=== PATIENT | male | born 1965 | race African-American/Black ===

== ENCOUNTER 2021-03-15 17:52 | Inpatient (IN) | payer MEDICAID ==
[~2021-03-15] VITALS: Ht 170.2 cm; Wt 47.6 kg
[2021-03-15 18:31] LABS: BASO # 0.1 x10^3/uL (0.0-0.2); BASO % 1 % (0-3); EOS # 0.1 x10^3/uL (0.0-0.7); EOS % 1 % (0-3); HEMATOCRIT 37.3 % (39.0-53.0); HEMOGLOBIN 13.4 g/dL (13.0-17.5); LYMPH # 1.1 x10^3/uL (1.0-4.8); LYMPH % 13 % (24-48); MEAN CORPUSCULAR HEMOGLOBIN 30 pg (25-35); MEAN CORPUSCULAR HGB CONC 36 g/dL (31-37); MEAN CORPUSCULAR VOLUME 82 fL (79-100); MONO # 0.8 x10^3/uL (0.0-1.1); MONO % 9 % (0-9); NEUT # 6.5 x10^3/uL (1.8-7.7); NEUT % 76 % (31-73); PLATELET COUNT 327 x10^3/uL (140-400); RED BLOOD COUNT 4.55 x10^6/uL (4.30-5.70); RED CELL DISTRIBUTION WIDTH 13.8 % (11.5-14.5); WHITE BLOOD COUNT 8.5 x10^3/uL (4.0-11.0)
--- NOTE | 2021-03-15 18:31 | EKG ---
[facility] [address] [place] [address] Test Date: 2021-03-15 Test Time: 18:05:59 Pat Name: JAMES SILVEIRA Department: Room: Gender: M Employee Relations Advisor: : 1965 Requested By: ANMOL GOMEZ Order Number: [id number] Reading MD: Measurements Intervals [place] Rate: 115 P: 79 NM: 138 QRS: 11 QRSD: 78 T: 54 QT: 314 QTc: 436 Interpretive Statements SINUS TACHYCARDIA BIATRIAL ENLARGEMENT ABNORMAL ECG RI6.02 No previous ECG available for comparison
[2021-03-15 18:39] LABS: CREATININE 1.2 mg/dL (0.7-1.3); GFR 62.6; POTASSIUM 3.7 mmol/L (3.5-5.1)
[2021-03-15 18:47] LABS: ALBUMIN 3.3 g/dL (3.4-5.0); ALBUMIN/GLOBULIN RATIO 0.8 (1.0-1.7); TOTAL BILIRUBIN 0.2 mg/dL (0.2-1.0); TOTAL PROTEIN 7.4 g/dL (6.4-8.2)
--- NOTE | 2021-03-15 18:48 | PHYS DOC ---
Past Medical History Past Surgical History: No Surgical History Smoking Status: Current Every Day Smoker Alcohol Use: Occasionally General Adult EDM: Chief Complaint: SHORTNESS OF BREATH HPI: HPI: Patient is a 55 year old male who presented to ER for evaluation of trouble breathing for several days. Patient denies any chest pain, no abdominal pain, no nausea vomiting. Patient denies any cough or fever. Patient is a smoker, he has COPD, he is not on oxygen at home. Patient is not vaccinated for COVID-19. Patient also complained of left knee pain and left hip pain, denies any injury. Review of Systems: Review of Systems: Constitutional: Denies fever or chills. [] Eyes: Denies change in visual acuity. [] HENT: Denies nasal congestion or sore throat. [] Respiratory: Positive for cough, trouble breathing Cardiovascular: Denies chest pain or edema. [] GI: Denies abdominal pain, nausea, vomiting, bloody stools or diarrhea. [] : Denies dysuria. [] Musculoskeletal: Positive for right hip pain, left knee pain, no low back pain Integument: Denies rash. [] Neurologic: Denies headache, focal weakness or sensory changes. [] Endocrine: Denies polyuria or polydipsia. [] Lymphatic: Denies swollen glands. [] Psychiatric: Denies depression or anxiety. [] Heart Score: C/O Chest Pain: N/A Risk Factors: Risk Factors: DM, Current or recent (<one month) smoker, HTN, HLP, family history of CAD, obesity. Risk Scores: Score 0 - 3: 2.5% MACE over next 6 weeks - Discharge Home Score 4 - 6: 20.3% MACE over next 6 weeks - Admit for Clinical Observation Score 7 - 10: 72.7% MACE over next 6 weeks - Early Invasive Strategies Allergies: Allergies: Allergies Coded Allergies Type Severity Reaction Last Updated Verified No Known Drug Allergies 03/15/21 No Physical Exam: PE: Constitutional: Well developed, well nourished, no acute distress, non-toxic appearance. [] HENT: Normocephalic, atraumatic, bilateral external ears normal, oropharynx moist, no oral exudates, nose normal. [] Eyes: PERRLA, EOMI, conjunctiva normal, no discharge. [] Neck: Normal range of motion, no tenderness, supple, no stridor. [] Cardiovascular: Sinus tachycardia, regular rhythm, no murmur [] Lungs & Thorax: Bilateral breath sounds WITH EXPIRATORY WHEEZING to auscultation [] Abdomen: Bowel sounds normal, soft, no tenderness, no masses, no pulsatile masses. [] Skin: Warm, dry, no erythema, no rash. [] Back: No tenderness, no CVA tenderness. [] Extremities: No tenderness, no cyanosis, no clubbing, ROM intact, no edema. [] Neurologic: Alert and oriented X 3, normal motor function, normal sensory function, no focal deficits noted. [] Psychologic: Affect normal, judgement normal, mood normal. [] Current Patient Data: Labs: Laboratory Tests Test 03/15/21 18:20 White Blood Count 8.5 x10^3/uL (4.0-11.0) Red Blood Count 4.55 x10^6/uL (4.30-5.70) Hemoglobin 13.4 g/dL (13.0-17.5) Hematocrit 37.3 % (39.0-53.0) L Mean Corpuscular Volume 82 fL (79-100) Mean Corpuscular Hemoglobin 30 pg (25-35) Mean Corpuscular Hemoglobin Concent 36 g/dL (31-37) Red Cell Distribution Width 13.8 % (11.5-14.5) Platelet Count 327 x10^3/uL (140-400) Neutrophils (%) (Auto) 76 % (31-73) H Lymphocytes (%) (Auto) 13 % (24-48) L Monocytes (%) (Auto) 9 % (0-9) Eosinophils (%) (Auto) 1 % (0-3) Basophils (%) (Auto) 1 % (0-3) Neutrophils # (Auto) 6.5 x10^3/uL (1.8-7.7) Lymphocytes # (Auto) 1.1 x10^3/uL (1.0-4.8) Monocytes # (Auto) 0.8 x10^3/uL (0.0-1.1) Eosinophils # (Auto) 0.1 x10^3/uL (0.0-0.7) Basophils # (Auto) 0.1 x10^3/uL (0.0-0.2) Sodium Level 138 mmol/L (136-145) Potassium Level 3.7 mmol/L (3.5-5.1) Chloride Level 102 mmol/L (98-107) Carbon Dioxide Level 31 mmol/L (21-32) Anion Gap 5 (6-14) L Blood Urea Nitrogen 14 mg/dL (8-26) Creatinine 1.2 mg/dL (0.7-1.3) Estimated GFR (Cockcroft-Gault) 62.6 BUN/Creatinine Ratio 12 (6-20) Glucose Level 153 mg/dL (70-99) H Calcium Level 9.0 mg/dL (8.5-10.1) Magnesium Level Pending Total Bilirubin Pending Aspartate Amino Transferase (AST) Pending Alanine Aminotransferase (ALT) Pending Alkaline Phosphatase Pending Total Protein Pending Albumin Pending Albumin/Globulin Ratio Pending Laboratory Tests 03/15/21 18:20 Laboratory Tests 03/15/21 18:20 Vital Signs: Vital Signs Date Time Temp Pulse Resp B/P (MAP) Pulse Ox O2 Delivery O2 Flow Rate FiO2 03/15/21 18:05 114 24 116/84 98 EKG: EKG: EKG was done at 616, heart rate 115 bpm, sinus tachycardia, no ST segment elevation,, normal axis Radiology/Procedures: Radiology/Procedures: [][facility] [address] [place] [address] IMAGING REPORT Signed PATIENT: JAMES SILVEIRA CACCOUNT: [id number] : 1965 LOCATION: ER AGE: 55 SEX: M EXAM STATUS: PRE ER ORD. PHYSICIAN: ANMOL GOMEZ DO REASON: right hip pain PROCEDURE: HIP RIGHT 2V WITH PELVIS EXAM: Chest, single view; left knee, 3 views; pelvis and right hip, 3 views. HISTORY: Pain COMPARISON: None. FINDINGS: Chest: A frontal view of the chest is obtained. There is no infiltrate, pleural effusion or pneumothorax. There is a cardiac event monitor overlying the left thorax. There are calcified granulomas. There is hyperlucency likely due to emphysema. Left knee: 3 views of the left knee are obtained. There is a displaced fracture of the inferior patella. There is approximately 1.5 cm displacement along the fracture line. There is no overlying soft tissue swelling or joint effusion, suggesting a possible chronic nonunited fracture. Right hip and pelvis: A frontal view of the pelvis and 2 views of the right hip are obtained. There is no acute fracture, dislocation or subluxation. The femoral heads are normal in configuration. There is minimal marginal femoral head spurring. There is degenerative change at the lower lumbar levels. IMPRESSION: 1. No acute thoracic finding. 2. Displaced left inferior patellar fracture. This may be chronic given the absence of a joint effusion and overlying soft tissue swelling. Correlate for pain in this location. 3. Minimal bilateral hip osteoarthritis and multilevel degenerative change involving the lower lumbar spine. Electronically signed by: Nemo New MD (03/15/2021 7:12 PM) [facility] DICTATED and SIGNED BY: NEMO NEW MD DATE: 03/15/21 [id number] Course & Med Decision Making: Course & Med Decision Making Pertinent Labs and Imaging studies reviewed. (See chart for details) Patient is a 55-year-old male who present to ER for evaluation of trouble breathing, left knee pain, right hip pain. X-ray of the left knee show chronic patella fracture, x-ray of the right hip show arthritis in his hip. X-ray of the chest shows COPD pattern. Patient will be admitted for COPD exacerbation Bebe Disclaimer: Bebe Disclaimer: This electronic medical record was generated, in whole or in part, using a voice recognition dictation system. Departure Departure Impression: Primary Impression: COPD with exacerbation Additional Impressions: Hip pain, right Person under investigation for COVID-19 Disposition: ADMITTED INPATIENT Admitting Physician: VANESSA (Dr. Seth) Condition: STABLE GOMEZANMOL Hunter Mar 15, 2021 18:48
--- NOTE | 2021-03-15 19:14 | RAD ---
EXAM: Chest, single view; left knee, 3 views; pelvis and right hip, 3 views. HISTORY: Pain COMPARISON: None. FINDINGS: Chest: A frontal view of the chest is obtained. There is no infiltrate, pleural effusion or pneumothorax. There is a cardiac event monitor overlying the left thorax. There are calcified granul omas. There is hyperlucency likely due to emphysema. Left knee: 3 views of the left knee are obtained. There is a displaced fracture of the inferior comer la. There is approximately 1.5 cm displacement along the fracture line. There is no overlying soft ti ssue swelling or joint effusion, suggesting a possible chronic nonunited fracture. Right hip and pelvis: A frontal view of the pelvis and 2 views of the right hip are obtained. There i s no acute fracture, dislocation or subluxation. The femoral heads are normal in configuration. There is minimal marginal femoral head spurring. There is degenerative change at the lower lumbar levels. IMPRESSION: 1. No acute thoracic finding. 2. Displaced left inferior patellar fracture. This may be chronic given the absence of a joint effusi on and overlying soft tissue swelling. Correlate for pain in this location. 3. Minimal bilateral hip osteoarthritis and multilevel degenerative change involving the lower lumbar spine. Electronically signed by: Nemo Newsome MD (03/15/2021 7:12 PM) [facility]
[2021-03-15] MEDS ORDERED: methylPREDNISolone SOD SUCC PF 125 MG/2 ML VIAL. IV ONE (20:30)
[2021-03-15] MEDS ORDERED: IPRATRPIUM/ALBUTEROL 0.5/2.5MG 3 ML NEBU. NEB ONE (20:30)
[2021-03-15] MEDS ORDERED: ONDANSETRON PF 4 MG/2 ML VIAL. IVP PRN (21:00)
--- NOTE | 2021-03-15 21:54 | PDOC1 ---
History and Physical Date of Admission Date of Admission DATE: 03/15/21 TIME: 21:51 Source Source: Chart review, Patient History of Present Illness History of Present Illness t MR. Barker is a 55 year old male admit from the ER with worsening trouble breathing for several days. Patient denies any chest pain, no abdominal pain, no nausea vomiting. he complains that he is very cold and asks me to get him a blanket, He has cough - denied other fever. Patient is a current smoker, he has known COPD, he is not on oxygen at home. Patient is not vaccinated for COVID-19. He is very thin but does not say he has lost any weight, no pain, Patient also complained of left knee pain and left hip pain, denies any injury. Past Medical History Cardiovascular: HTN Pulmonary: COPD GI: No pertinent hx Infectious disease: No pertinent hx Renal/: No pertinent hx Family History Family History: Cancer Family History: Parent Social History Smoke: <1 pack per day ALCOHOL: none Drugs: None Current Problem List Problem List Problems Medical Problems: (1) COPD with exacerbation Status: Acute (2) Hip pain, right Status: Acute (3) Person under investigation for COVID-19 Status: Acute Current Medications Current Medications Current Medications Methylprednisolone Sodium Succinate (SOLU-Medrol 125MG VIAL) 125 mg 1X ONCE IV Last administered on 03/15/21at 20:05; Start 03/15/21 at 20:30; Stop 03/15/21 at 20:31; Status DC Albuterol/ Ipratropium (Duoneb) 3 ml 1X ONCE NEB Last administered on 03/15/21at 20:33; Start 03/15/21 at 20:30; Stop 03/15/21 at 20:31; Status DC Ondansetron HCl (Zofran) 4 mg PRN Q8HRS PRN IVP NAUSEA/VOMITING 1st choice; Start 03/15/21 at 21:00; Stop 03/16/21 at 20:59 Albuterol/ Ipratropium (Duoneb) 3 ml RTQID NEB ; Start 03/16/21 at 08:00; Stop 03/17/21 at 07:59 Allergies Allergies: Coded Allergies: No Known Drug Allergies (Unverified , 03/15/21) ROS General: YES: Chills, Fatigue, Malaise PSYCHOLOGICAL ROS: YES: Anxiety, Sleep disturbances Eyes: No Blurry vision, No Decreased vision, No Double vision, No Dry eyes, No Excessive tearing, No Eye Pain, No Itchy Eyes, No Loss of vision, No Photophobia, No Scotomata, No Uses contacts, No Uses glasses, No Other HEENT: No: Heacaches, Visual Changes, Hearing change, Nasal congestion, Nasal discharge, Oral lesions, Sinus pain, Sore Throat, Epistaxis, Sneezing, Snoring, Tinnitus, Vertigo, Vocal changes, Other Hematological and Lymphatic: No: Bleeding Problems, Blood Clots, Blood Transfusions, Brusing, Night Sweats, Pallor, Swollen Lymph Nodes, Other ENDOCRINE: YES: Temperature Intolerance (cold); No: Breast Changes, Galactorrhea, Hair Pattern Changes, Hot Flashes, Malaise/lethargy, Mood Swings, Palpitations, Polydipsia/polyuria, Skin Changes, Unexpected Weight Changes, Other Respiratory: YES: Cough, Shortness of breath, SOB with excertion, Sputum Changes Cardiovascular: No Chest Pain, No Palpitations, No Orthopnea, No Paroxysmal Noc. Dyspnea, No Edema, No Lt Headedness, No Other Gastrointestinal: Yes Nausea, Yes Abdominal Pain Genitourinary: No Dysuria, No Frequency, No Incontinence, No Hematuria, No Retention, No Discharge, No Urgency, No Pain, No Flank Pain, No Other, No , No , No , No , No , No , No Musculoskeletal: Yes Joint Pain, Yes Joint Stiffness Neurological: No Behavorial Changes, No Bowel/Bladder ControlChng, No Confusion, No Dizziness, No Gait Disturbance, No Headaches, No Impaired Coord/balance, No Memory Loss, No Numbness/Tingling, No Seizures, No Speech Problems, No Tremors, No Visual Changes, No Weakness, No Other Skin: Yes Dry Skin Physical Exam General: Alert, Oriented X3, Cooperative, mild distress HEENT: PERRLA Lungs: Other (rales, wheeze, poor volume, ) Heart: no murmurs, irregularly irregular Abdomen: Soft (very thin) Extremities: No cyanosis, No edema, Other (muscle wasting) Skin: No rashes Neuro: Sensation intact, Other Psych/Mental Status: Mood NL, Other Vitals Vitals Vital Signs Date Time Temp Pulse Resp B/P (MAP) Pulse Ox O2 Delivery O2 Flow Rate FiO2 03/15/21 20:33 98 Room Air 03/15/21 20:06 96 172/91 (118) 03/15/21 18:05 24 Labs Labs Laboratory Tests Test 03/15/21 18:20 03/15/21 19:10 White Blood Count 8.5 x10^3/uL (4.0-11.0) Red Blood Count 4.55 x10^6/uL (4.30-5.70) Hemoglobin 13.4 g/dL (13.0-17.5) Hematocrit 37.3 % (39.0-53.0) Mean Corpuscular Volume 82 fL (79-100) Mean Corpuscular Hemoglobin 30 pg (25-35) Mean Corpuscular Hemoglobin Concent 36 g/dL (31-37) Red Cell Distribution Width 13.8 % (11.5-14.5) Platelet Count 327 x10^3/uL (140-400) Neutrophils (%) (Auto) 76 % (31-73) Lymphocytes (%) (Auto) 13 % (24-48) Monocytes (%) (Auto) 9 % (0-9) Eosinophils (%) (Auto) 1 % (0-3) Basophils (%) (Auto) 1 % (0-3) Neutrophils # (Auto) 6.5 x10^3/uL (1.8-7.7) Lymphocytes # (Auto) 1.1 x10^3/uL (1.0-4.8) Monocytes # (Auto) 0.8 x10^3/uL (0.0-1.1) Eosinophils # (Auto) 0.1 x10^3/uL (0.0-0.7) Basophils # (Auto) 0.1 x10^3/uL (0.0-0.2) Sodium Level 138 mmol/L (136-145) Potassium Level 3.7 mmol/L (3.5-5.1) Chloride Level 102 mmol/L (98-107) Carbon Dioxide Level 31 mmol/L (21-32) Anion Gap 5 (6-14) Blood Urea Nitrogen 14 mg/dL (8-26) Creatinine 1.2 mg/dL (0.7-1.3) Estimated GFR (Cockcroft-Gault) 62.6 BUN/Creatinine Ratio 12 (6-20) Glucose Level 153 mg/dL (70-99) Calcium Level 9.0 mg/dL (8.5-10.1) Magnesium Level 2.0 mg/dL (1.8-2.4) Total Bilirubin 0.2 mg/dL (0.2-1.0) Aspartate Amino Transf (AST/SGOT) 18 U/L (15-37) Alanine Aminotransferase (ALT/SGPT) 24 U/L (16-63) Alkaline Phosphatase 111 U/L (46-116) Troponin I Quantitative < 0.017 ng/mL (0.000-0.055) BC-Foy-L-Type Natriuretic Peptide 490 pg/mL (0-124) Total Protein 7.4 g/dL (6.4-8.2) Albumin 3.3 g/dL (3.4-5.0) Albumin/Globulin Ratio 0.8 (1.0-1.7) SARS-CoV-2 Antigen (Rapid) Negative (NEGATIVE) Lactic Acid Level 2.1 mmol/L (0.4-2.0) Laboratory Tests Test 03/15/21 18:20 03/15/21 19:10 White Blood Count 8.5 x10^3/uL (4.0-11.0) Red Blood Count 4.55 x10^6/uL (4.30-5.70) Hemoglobin 13.4 g/dL (13.0-17.5) Hematocrit 37.3 % (39.0-53.0) Mean Corpuscular Volume 82 fL (79-100) Mean Corpuscular Hemoglobin 30 pg (25-35) Mean Corpuscular Hemoglobin Concent 36 g/dL (31-37) Red Cell Distribution Width 13.8 % (11.5-14.5) Platelet Count 327 x10^3/uL (140-400) Neutrophils (%) (Auto) 76 % (31-73) Lymphocytes (%) (Auto) 13 % (24-48) Monocytes (%) (Auto) 9 % (0-9) Eosinophils (%) (Auto) 1 % (0-3) Basophils (%) (Auto) 1 % (0-3) Neutrophils # (Auto) 6.5 x10^3/uL (1.8-7.7) Lymphocytes # (Auto) 1.1 x10^3/uL (1.0-4.8) Monocytes # (Auto) 0.8 x10^3/uL (0.0-1.1) Eosinophils # (Auto) 0.1 x10^3/uL (0.0-0.7) Basophils # (Auto) 0.1 x10^3/uL (0.0-0.2) Sodium Level 138 mmol/L (136-145) Potassium Level 3.7 mmol/L (3.5-5.1) Chloride Level 102 mmol/L (98-107) Carbon Dioxide Level 31 mmol/L (21-32) Anion Gap 5 (6-14) Blood Urea Nitrogen 14 mg/dL (8-26) Creatinine 1.2 mg/dL (0.7-1.3) Estimated GFR (Cockcroft-Gault) 62.6 BUN/Creatinine Ratio 12 (6-20) Glucose Level 153 mg/dL (70-99) Calcium Level 9.0 mg/dL (8.5-10.1) Magnesium Level 2.0 mg/dL (1.8-2.4) Total Bilirubin 0.2 mg/dL (0.2-1.0) Aspartate Amino Transf (AST/SGOT) 18 U/L (15-37) Alanine Aminotransferase (ALT/SGPT) 24 U/L (16-63) Alkaline Phosphatase 111 U/L (46-116) Troponin I Quantitative < 0.017 ng/mL (0.000-0.055) SK-Ios-N-Type Natriuretic Peptide 490 pg/mL (0-124) Total Protein 7.4 g/dL (6.4-8.2) Albumin 3.3 g/dL (3.4-5.0) Albumin/Globulin Ratio 0.8 (1.0-1.7) SARS-CoV-2 Antigen (Rapid) Negative (NEGATIVE) Lactic Acid Level 2.1 mmol/L (0.4-2.0) VTE Prophylaxis Ordered VTE Prophylaxis Devices: No VTE Pharmacological Prophylaxi: Yes Assessment/Plan Assessment/Plan SIRS, sepsis, acute bronchitis acute hypercarbic respiratory failure COPD with acute bronchitis underweight, malnutrition, BMI 16 htn is PUI for COVID, he has not been vaccinated Justifications for Admission Other Justification TYLOR ESPINOSA MD Mar 15, 2021 21:54
[2021-03-15] MEDS ORDERED: cefTRIAXone IV Push 1 GM VIAL. IVP SCH (22:00)
[2021-03-15] MEDS ORDERED: AZITHRMYCN 500MG IVPB FOR OMNI 250 ML IV ONE (22:00)
[2021-03-15] MEDS ORDERED: NICOTINE 21MG PATCH. TD PRN (22:00)
[2021-03-15 23:00] VITALS: BP 146/95
[2021-03-16] MEDS: ENOXAPARIN 40 MG/0.4 ML SYRINGE. SQ SCH ×2 (00:23→21:31)
[2021-03-16] MEDS: oxyCODONE/APAP 5/325 1 TAB TABLET PO PRN ×3 (00:24→21:31)
[2021-03-16 03:20] VITALS: BP 135/89
[2021-03-16 07:00] VITALS: BP 122/88
--- NOTE | 2021-03-16 07:17 | PDOC ---
[employer] PROGRESS NOTE Date of Service DOS: DATE: 03/16/21 TIME: 07:14 Chief Complaint Chief Complaint SIRS, sepsis, acute bronchitis acute hypercarbic respiratory failure COPD with acute bronchitis underweight, malnutrition, BMI 16 htn Left knee inferior patellar fracture - seen at [facility] 6 months ago, noted non- operative History of Present Illness History of Present Illness MR. Barker is a 55 year old male admit from the ER with worsening trouble breathing for several days. Patient denies any chest pain, no abdominal pain, no nausea vomiting. he complains that he is very cold and asks me to get him a blanket, He has cough - denied other fever. Patient is a current smoker, he has known COPD, he is not on oxygen at home. Patient is not vaccinated for COVID-19. He is very thin but does not say he has lost any weight, no pain, Patient also complained of left knee pain and left hip pain, denies any injury. Afebrile but tachycardic. Chest radiograph with no acute abnormalities. Left knee radiograph with inferior patellar fracture Educated on Combivent inhaler per nursing. Breathing minimally improved today. Discussed in his left knee he notes he was seen at [facility] 6 months ago for the fracture but needed cardiology and pulmonology clearance by the time clearances were completed using early healing noted surgery was no longer recommended at that time. Vitals/I&O Vitals/I&O: Vital Signs Date Time Temp Pulse Resp B/P (MAP) Pulse Ox O2 Delivery O2 Flow Rate FiO2 03/16/21 05:26 Room Air 03/16/21 03:20 98.5 96 16 135/89 (104) 97 98.5 I & O 03/15/21 03/15/21 03/16/21 15:00 23:00 07:00 Intake Total 540 ml Balance 540 ml Physical Exam General: Alert, Oriented X3, Cooperative, mild distress Abdomen: Soft (very thin) Extremities: No cyanosis, No edema, Other (muscle wasting) Skin: No rashes Labs Labs: Laboratory Tests Test 03/15/21 18:20 03/15/21 19:10 03/15/21 22:40 White Blood Count 8.5 x10^3/uL (4.0-11.0) Red Blood Count 4.55 x10^6/uL (4.30-5.70) Hemoglobin 13.4 g/dL (13.0-17.5) Hematocrit 37.3 % (39.0-53.0) Mean Corpuscular Volume 82 fL (79-100) Mean Corpuscular Hemoglobin 30 pg (25-35) Mean Corpuscular Hemoglobin Concent 36 g/dL (31-37) Red Cell Distribution Width 13.8 % (11.5-14.5) Platelet Count 327 x10^3/uL (140-400) Neutrophils (%) (Auto) 76 % (31-73) Lymphocytes (%) (Auto) 13 % (24-48) Monocytes (%) (Auto) 9 % (0-9) Eosinophils (%) (Auto) 1 % (0-3) Basophils (%) (Auto) 1 % (0-3) Neutrophils # (Auto) 6.5 x10^3/uL (1.8-7.7) Lymphocytes # (Auto) 1.1 x10^3/uL (1.0-4.8) Monocytes # (Auto) 0.8 x10^3/uL (0.0-1.1) Eosinophils # (Auto) 0.1 x10^3/uL (0.0-0.7) Basophils # (Auto) 0.1 x10^3/uL (0.0-0.2) Sodium Level 138 mmol/L (136-145) Potassium Level 3.7 mmol/L (3.5-5.1) Chloride Level 102 mmol/L (98-107) Carbon Dioxide Level 31 mmol/L (21-32) Anion Gap 5 (6-14) Blood Urea Nitrogen 14 mg/dL (8-26) Creatinine 1.2 mg/dL (0.7-1.3) Estimated GFR (Cockcroft-Gault) 62.6 BUN/Creatinine Ratio 12 (6-20) Glucose Level 153 mg/dL (70-99) Calcium Level 9.0 mg/dL (8.5-10.1) Magnesium Level 2.0 mg/dL (1.8-2.4) Total Bilirubin 0.2 mg/dL (0.2-1.0) Aspartate Amino Transf (AST/SGOT) 18 U/L (15-37) Alanine Aminotransferase (ALT/SGPT) 24 U/L (16-63) Alkaline Phosphatase 111 U/L (46-116) Troponin I Quantitative < 0.017 ng/mL (0.000-0.055) TF-Jkk-B-Type Natriuretic Peptide 490 pg/mL (0-124) Total Protein 7.4 g/dL (6.4-8.2) Albumin 3.3 g/dL (3.4-5.0) Albumin/Globulin Ratio 0.8 (1.0-1.7) SARS-CoV-2 Antigen (Rapid) Negative (NEGATIVE) Lactic Acid Level 2.1 mmol/L (0.4-2.0) 1.9 mmol/L (0.4-2.0) Assessment and Plan Assessmemt and Plan Problems Medical Problems: (1) COPD with exacerbation Status: Acute (2) Hip pain, right Status: Acute (3) Person under investigation for COVID-19 Status: Acute Comment Review of Relevant I have reviewed the following items zack (where applicable) has been applied. Medications: Current Medications Medications (Trade) Dose Ordered Sig/Radha Route PRN Reason Start Time Stop Time Status Last Admin Dose Admin Methylprednisolone Sodium Succinate (SOLU-Medrol 125MG VIAL) 125 mg 1X ONCE IV 03/15/21 20:30 03/15/21 20:31 DC 03/15/21 20:05 Albuterol/ Ipratropium (Duoneb) 3 ml 1X ONCE NEB 03/15/21 20:30 03/15/21 20:31 DC 03/15/21 20:33 Ceftriaxone Sodium (Rocephin) 1 gm Q24H IVP 03/15/21 22:00 03/16/21 00:23 Azithromycin 250 ml @ 250 mls/hr 1X ONCE IV 03/15/21 22:00 03/15/21 22:59 DC 03/16/21 00:22 Amlodipine Besylate (Norvasc) 2.5 mg DAILY PO 03/15/21 22:00 03/16/21 00:24 Enoxaparin Sodium (Lovenox 40mg Syringe) 40 mg Q24H SQ 03/15/21 22:00 03/16/21 00:23 Oxycodone/ Acetaminophen (Percocet 5/325) 1 tab PRN Q4HRS PRN PO SEVERE PAIN 7-10 03/16/21 00:00 03/16/21 00:24 Justifications for Admission Other Justification RIFFEL,CHRISTOPHER S MD Mar 16, 2021 07:17
--- NOTE | 2021-03-16 09:02 | PDOC ---
PULMONARY PROGRESS NOTES DATE: 03/16/21 TIME: 09:01 Vitals Vital Signs Date Time Temp Pulse Resp B/P (MAP) Pulse Ox O2 Delivery O2 Flow Rate FiO2 03/16/21 05:26 Room Air 03/16/21 03:20 98.5 96 16 135/89 (104) 97 98.5 Labs Laboratory Tests Test 03/15/21 18:20 03/15/21 19:10 03/15/21 22:40 White Blood Count 8.5 x10^3/uL (4.0-11.0) Red Blood Count 4.55 x10^6/uL (4.30-5.70) Hemoglobin 13.4 g/dL (13.0-17.5) Hematocrit 37.3 % (39.0-53.0) Mean Corpuscular Volume 82 fL (79-100) Mean Corpuscular Hemoglobin 30 pg (25-35) Mean Corpuscular Hemoglobin Concent 36 g/dL (31-37) Red Cell Distribution Width 13.8 % (11.5-14.5) Platelet Count 327 x10^3/uL (140-400) Neutrophils (%) (Auto) 76 % (31-73) Lymphocytes (%) (Auto) 13 % (24-48) Monocytes (%) (Auto) 9 % (0-9) Eosinophils (%) (Auto) 1 % (0-3) Basophils (%) (Auto) 1 % (0-3) Neutrophils # (Auto) 6.5 x10^3/uL (1.8-7.7) Lymphocytes # (Auto) 1.1 x10^3/uL (1.0-4.8) Monocytes # (Auto) 0.8 x10^3/uL (0.0-1.1) Eosinophils # (Auto) 0.1 x10^3/uL (0.0-0.7) Basophils # (Auto) 0.1 x10^3/uL (0.0-0.2) Sodium Level 138 mmol/L (136-145) Potassium Level 3.7 mmol/L (3.5-5.1) Chloride Level 102 mmol/L (98-107) Carbon Dioxide Level 31 mmol/L (21-32) Anion Gap 5 (6-14) Blood Urea Nitrogen 14 mg/dL (8-26) Creatinine 1.2 mg/dL (0.7-1.3) Estimated GFR (Cockcroft-Gault) 62.6 BUN/Creatinine Ratio 12 (6-20) Glucose Level 153 mg/dL (70-99) Calcium Level 9.0 mg/dL (8.5-10.1) Magnesium Level 2.0 mg/dL (1.8-2.4) Total Bilirubin 0.2 mg/dL (0.2-1.0) Aspartate Amino Transf (AST/SGOT) 18 U/L (15-37) Alanine Aminotransferase (ALT/SGPT) 24 U/L (16-63) Alkaline Phosphatase 111 U/L (46-116) Troponin I Quantitative < 0.017 ng/mL (0.000-0.055) QA-Jba-M-Type Natriuretic Peptide 490 pg/mL (0-124) Total Protein 7.4 g/dL (6.4-8.2) Albumin 3.3 g/dL (3.4-5.0) Albumin/Globulin Ratio 0.8 (1.0-1.7) SARS-CoV-2 Antigen (Rapid) Negative (NEGATIVE) Lactic Acid Level 2.1 mmol/L (0.4-2.0) 1.9 mmol/L (0.4-2.0) Laboratory Tests Test 03/15/21 18:20 03/15/21 19:10 03/15/21 22:40 White Blood Count 8.5 x10^3/uL (4.0-11.0) Red Blood Count 4.55 x10^6/uL (4.30-5.70) Hemoglobin 13.4 g/dL (13.0-17.5) Hematocrit 37.3 % (39.0-53.0) Mean Corpuscular Volume 82 fL (79-100) Mean Corpuscular Hemoglobin 30 pg (25-35) Mean Corpuscular Hemoglobin Concent 36 g/dL (31-37) Red Cell Distribution Width 13.8 % (11.5-14.5) Platelet Count 327 x10^3/uL (140-400) Neutrophils (%) (Auto) 76 % (31-73) Lymphocytes (%) (Auto) 13 % (24-48) Monocytes (%) (Auto) 9 % (0-9) Eosinophils (%) (Auto) 1 % (0-3) Basophils (%) (Auto) 1 % (0-3) Neutrophils # (Auto) 6.5 x10^3/uL (1.8-7.7) Lymphocytes # (Auto) 1.1 x10^3/uL (1.0-4.8) Monocytes # (Auto) 0.8 x10^3/uL (0.0-1.1) Eosinophils # (Auto) 0.1 x10^3/uL (0.0-0.7) Basophils # (Auto) 0.1 x10^3/uL (0.0-0.2) Sodium Level 138 mmol/L (136-145) Potassium Level 3.7 mmol/L (3.5-5.1) Chloride Level 102 mmol/L (98-107) Carbon Dioxide Level 31 mmol/L (21-32) Anion Gap 5 (6-14) Blood Urea Nitrogen 14 mg/dL (8-26) Creatinine 1.2 mg/dL (0.7-1.3) Estimated GFR (Cockcroft-Gault) 62.6 BUN/Creatinine Ratio 12 (6-20) Glucose Level 153 mg/dL (70-99) Calcium Level 9.0 mg/dL (8.5-10.1) Magnesium Level 2.0 mg/dL (1.8-2.4) Total Bilirubin 0.2 mg/dL (0.2-1.0) Aspartate Amino Transf (AST/SGOT) 18 U/L (15-37) Alanine Aminotransferase (ALT/SGPT) 24 U/L (16-63) Alkaline Phosphatase 111 U/L (46-116) Troponin I Quantitative < 0.017 ng/mL (0.000-0.055) HI-Anz-L-Type Natriuretic Peptide 490 pg/mL (0-124) Total Protein 7.4 g/dL (6.4-8.2) Albumin 3.3 g/dL (3.4-5.0) Albumin/Globulin Ratio 0.8 (1.0-1.7) SARS-CoV-2 Antigen (Rapid) Negative (NEGATIVE) Lactic Acid Level 2.1 mmol/L (0.4-2.0) 1.9 mmol/L (0.4-2.0) Impression . Full consult dictated Acute exacerbation of COPD Possible discharge in the a.m. LYNN VORA MD Mar 16, 2021 09:02
[2021-03-16] MEDS: DOXYCYCLINE HYCLATE 100 MG TABLET PO SCH ×2 (09:34→21:31)
[2021-03-16] MEDS: AZITHROMYCIN 250 MG TABLET. PO SCH (09:34)
[2021-03-16] MEDS: predniSONE 10 MG TABLET PO SCH (09:34)
[2021-03-16] MEDS: IPRATROPIUM/ALBUTEROL 20/100mcg/INH INHALER. INH SCH ×4 (09:35→21:30)
--- NOTE | 2021-03-16 10:07 | CONS ---
DATE OF CONSULTATION: 03/16/2021 ATTENDING PHYSICIAN: Dr. Ladan Seth. REASON FOR CONSULTATION: The patient is seen in pulmonary consultation at the request of Dr. Seth for abnormal x-ray, increasing shortness of air. HISTORY OF PRESENT ILLNESS: The patient is a 55-year-old that presented to the Emergency Room, unvaccinated with increased shortness of breath over the last several days. He does not wear oxygen at home. He continues to smoke. He uses metered dose inhalers. Denies fever, chills, no COVID-19 exposures. He had a chest x-ray, which I personally reviewed, revealing calcified nodes along with emphysematous changes. He had rapid test which was negative. White count was 8.5. PAST MEDICAL HISTORY: Tobacco dependent COPD, hypertension. PAST SURGICAL HISTORY: No recent major surgeries. FAMILY HISTORY: Cancer. SOCIAL HISTORY: He smokes less than 1 pack of cigarettes a day. REVIEW OF SYSTEMS: CONSTITUTIONAL: No fever or chills. EYES: No change in visual acuity. HENT: No nasal congestion, sore throat. PULMONARY: As indicated above. CARDIOVASCULAR: No chest pain, no pressure. GASTROINTESTINAL: No nausea, vomiting, diarrhea. GENITOURINARY: No dysuria or frequency. MUSCULOSKELETAL: No localized muscle aches or joint pains. SKIN: No new skin rashes. ALLERGIES: No known drug allergies. CURRENT MEDICATIONS: List was reviewed. The patient is currently receiving Zithromax, Solu-Medrol and Rocephin along with enoxaparin. PHYSICAL EXAMINATION: GENERAL: The patient was in no respiratory distress. VITAL SIGNS: Vital signs were stable. O2 saturation on room air was 96%. LUNGS: Adequate flow, no wheezes. CARDIOVASCULAR: Regular rate and rhythm with S1, S2, no S3. ABDOMEN: Soft, tender. EXTREMITIES: No clubbing, cyanosis or edema. Chest x-ray and labs were reviewed as indicated above. IMPRESSION: 1. Acute exacerbation of chronic obstructive pulmonary disease. 2. Tobacco dependent. 3. Chronic obstructive pulmonary disease, unknown FEV1. 4. Chest x-ray revealing emphysema. RECOMMENDATIONS: 1. Continue steroids. 2. Empiric antibiotics. 3. Nebulized treatments. 4. Possible discharge in the a.m. I do appreciate the privilege in sharing in the patient's care. DAMARIS DR: Ananth TID: [id number]
--- NOTE | 2021-03-16 10:53 | NUR ---
SW following. Discussed with RN, pt from home with daughter, room air, regular diet, COVID-19 negative. RN advised no SW needs at this time. SW will continue to follow.
[2021-03-16 11:00] VITALS: BP 146/94
[2021-03-16 15:00] VITALS: BP 143/89
[2021-03-16] MEDS: DICLOFENAC SODIUM 1% TOPICAL GEL 100GM TUBE. TP SCH ×2 (15:26→21:30)
[2021-03-16 19:00] VITALS: BP 128/84
[2021-03-16] MEDS: BUDESONIDE 0.5 MG/2 ML NEBU. NEB SCH (21:20)
[2021-03-16] MEDS: LACTOBACILLUS RHAMNOSUS GG 1 CAPSULE. PO SCH (21:31)
[2021-03-16 23:16] VITALS: BP 126/78
[2021-03-17 02:56] VITALS: BP 142/97
[2021-03-17 07:00] VITALS: BP 130/87
[2021-03-17] MEDS: BUDESONIDE 0.5 MG/2 ML NEBU. NEB SCH ×2 (08:00→11:26)
[2021-03-17] MEDS: IPRATROPIUM/ALBUTEROL 20/100mcg/INH INHALER. INH SCH (08:00)
[2021-03-17] MEDS: LACTOBACILLUS RHAMNOSUS GG 1 CAPSULE. PO SCH (09:49)
[2021-03-17] MEDS: predniSONE 10 MG TABLET PO SCH (09:49)
[2021-03-17] MEDS: DOXYCYCLINE HYCLATE 100 MG TABLET PO SCH (09:50)
[2021-03-17] MEDS: oxyCODONE/APAP 5/325 1 TAB TABLET PO PRN (09:50)
[2021-03-17] MEDS: AZITHROMYCIN 250 MG TABLET. PO SCH (09:50)
[2021-03-17] MEDS: DICLOFENAC SODIUM 1% TOPICAL GEL 100GM TUBE. TP SCH ×2 (09:52→09:53)
--- NOTE | 2021-03-17 10:14 | PDOC ---
[employer] PROGRESS NOTE Date of Service DOS: DATE: 03/17/21 TIME: 10:07 Chief Complaint Chief Complaint SIRS, sepsis, acute bronchitis acute hypercarbic respiratory failure COPD with acute bronchitis underweight, malnutrition, BMI 16 htn Left knee inferior patellar fracture - seen at [facility] 6 months ago, noted non- operative History of Present Illness History of Present Illness MR. Barker is a 55 year old male admit from the ER with worsening trouble breathing for several days. Patient denies any chest pain, no abdominal pain, no nausea vomiting. he complains that he is very cold and asks me to get him a blanket, He has cough - denied other fever. Patient is a current smoker, he has known COPD, he is not on oxygen at home. Patient is not vaccinated for COVID-19. He is very thin but does not say he has lost any weight, no pain, Patient also complained of left knee pain and left hip pain, denies any injury. Afebrile but tachycardic. Chest radiograph with no acute abnormalities. Left knee radiograph with inferior patellar fracture 03/16/2021: Educated on Combivent inhaler per nursing. Breathing minimally improved today. Discussed in his left knee he notes he was seen at [facility] 6 months ago for the fracture but needed cardiology and pulmonolo gy clearance by the time clearances were completed using early healing noted surgery was no longer recommended at that time. 03/17/2021: Afebrile, breathing room air at the time my evaluation. COVID-19 negative. Discussed case with Dr. Hodge, patient may discharge home today. States he feels ready to discharge home. Greater than 30 minutes was spent managing discharging this patient. Vitals/I&O Vitals/I&O: Vital Signs Date Time Temp Pulse Resp B/P (MAP) Pulse Ox O2 Delivery O2 Flow Rate FiO2 03/17/21 09:50 18 Room Air 2.0 03/17/21 09:50 96 130/87 03/17/21 07:00 97.8 99 97.8 I & O 03/16/21 03/16/21 03/17/21 15:00 23:00 07:00 Intake Total 250 ml Balance 250 ml Physical Exam General: Alert, Oriented X3, Cooperative, mild distress Heart: Regular rate Lungs: Clear Abdomen: Soft (very thin) Extremities: No cyanosis, No edema, Other (muscle wasting) Skin: No rashes Assessment and Plan Assessmemt and Plan Problems Medical Problems: (1) COPD with exacerbation Status: Acute (2) Hip pain, right Status: Acute (3) Person under investigation for COVID-19 Status: Acute Comment Review of Relevant I have reviewed the following items zack (where applicable) has been applied. Medications: Current Medications Medications (Trade) Dose Ordered Sig/Radha Route PRN Reason Start Time Stop Time Status Last Admin Dose Admin Budesonide (Pulmicort) 0.5 mg RTBID NEB 03/16/21 20:00 03/17/21 08:00 Lactobacillus Rhamnosus (Culturelle) 1 cap BID PO 03/16/21 21:00 03/17/21 09:49 Diclofenac Sodium (Voltaren) 1 josefina BID TP 03/16/21 14:45 03/17/21 09:53 Justifications for Admission Other Justification RADHA MATTA MD Mar 17, 2021 10:14
--- NOTE | 2021-03-17 10:15 | PDOC3 ---
Discharge Summary Visit Information Date of Admission: Mar 15, 2021 Date of Discharge: Mar 17, 2021 Final Diagnosis Problems Medical Problems: (1) COPD with exacerbation Status: Acute (2) Hip pain, right Status: Acute (3) Person under investigation for COVID-19 Status: Acute Brief Hospital Course Allergies Allergies Coded Allergies Type Severity Reaction Last Updated Verified No Known Drug Allergies 03/15/21 No Vital Signs Vital Signs Date Time Temp Pulse Resp B/P (MAP) Pulse Ox O2 Delivery O2 Flow Rate FiO2 03/17/21 09:50 18 Room Air 2.0 03/17/21 09:50 96 130/87 03/17/21 07:00 97.8 99 97.8 Lab Results Laboratory Tests Test 03/15/21 18:20 03/15/21 19:10 03/15/21 22:40 White Blood Count 8.5 x10^3/uL (4.0-11.0) Red Blood Count 4.55 x10^6/uL (4.30-5.70) Hemoglobin 13.4 g/dL (13.0-17.5) Hematocrit 37.3 % (39.0-53.0) Mean Corpuscular Volume 82 fL (79-100) Mean Corpuscular Hemoglobin 30 pg (25-35) Mean Corpuscular Hemoglobin Concent 36 g/dL (31-37) Red Cell Distribution Width 13.8 % (11.5-14.5) Platelet Count 327 x10^3/uL (140-400) Neutrophils (%) (Auto) 76 % (31-73) Lymphocytes (%) (Auto) 13 % (24-48) Monocytes (%) (Auto) 9 % (0-9) Eosinophils (%) (Auto) 1 % (0-3) Basophils (%) (Auto) 1 % (0-3) Neutrophils # (Auto) 6.5 x10^3/uL (1.8-7.7) Lymphocytes # (Auto) 1.1 x10^3/uL (1.0-4.8) Monocytes # (Auto) 0.8 x10^3/uL (0.0-1.1) Eosinophils # (Auto) 0.1 x10^3/uL (0.0-0.7) Basophils # (Auto) 0.1 x10^3/uL (0.0-0.2) Sodium Level 138 mmol/L (136-145) Potassium Level 3.7 mmol/L (3.5-5.1) Chloride Level 102 mmol/L (98-107) Carbon Dioxide Level 31 mmol/L (21-32) Anion Gap 5 (6-14) Blood Urea Nitrogen 14 mg/dL (8-26) Creatinine 1.2 mg/dL (0.7-1.3) Estimated GFR (Cockcroft-Gault) 62.6 BUN/Creatinine Ratio 12 (6-20) Glucose Level 153 mg/dL (70-99) Calcium Level 9.0 mg/dL (8.5-10.1) Magnesium Level 2.0 mg/dL (1.8-2.4) Total Bilirubin 0.2 mg/dL (0.2-1.0) Aspartate Amino Transf (AST/SGOT) 18 U/L (15-37) Alanine Aminotransferase (ALT/SGPT) 24 U/L (16-63) Alkaline Phosphatase 111 U/L (46-116) Troponin I Quantitative < 0.017 ng/mL (0.000-0.055) CW-Yla-V-Type Natriuretic Peptide 490 pg/mL (0-124) Total Protein 7.4 g/dL (6.4-8.2) Albumin 3.3 g/dL (3.4-5.0) Albumin/Globulin Ratio 0.8 (1.0-1.7) SARS-CoV-2 RNA (TERRENCE) Negative (Negative) SARS-CoV-2 Antigen (Rapid) Negative (NEGATIVE) Lactic Acid Level 2.1 mmol/L (0.4-2.0) 1.9 mmol/L (0.4-2.0) Brief Hospital Course MR. Barker is a 55 year old male admit from the ER with worsening trouble breathing for several days. Patient denies any chest pain, no abdominal pain, no nausea vomiting. he complains that he is very cold and asks me to get him a blanket, He has cough - denied other fever. Patient is a current smoker, he has known COPD, he is not on oxygen at home. Patient is not vaccinated for COVID-19. He is very thin but does not say he has lost any weight, no pain, Patient also complained of left knee pain and left hip pain, denies any injury. Afebrile but tachycardic. Chest radiograph with no acute abnormalities. Left knee radiograph with inferior patellar fracture 03/16/2021: Educated on Combivent inhaler per nursing. Breathing minimally improved today. Discussed in his left knee he notes he was seen at [facility] months ago for the fracture but needed cardiology and pulmonology clearance by the time clearances were completed using early healing noted surgery was no longer recommended at that time. 03/17/2021: Afebrile, breathing room air at the time my evaluation. COVID-19 negative. Discussed case with Dr. Hodge, patient may discharge home today. States he feels ready to discharge home. Greater than 30 minutes was spent managing discharging this patient. Discharge Information Condition at Discharge: Improved Disposition/Orders: D/C to Home Justicifation of Admission Dx: Justifications for Admission: Justification of Admission Dx: Yes RADHA MATTA MD Mar 17, 2021 10:15
[2021-03-17] MEDS ORDERED: PRED20TA PO (10:17)
--- NOTE | 2021-03-17 10:42 | PDOC ---
PULMONARY PROGRESS NOTES DATE: 03/17/21 TIME: 10:40 Subjective no soa on RA Vitals Vital Signs Date Time Temp Pulse Resp B/P (MAP) Pulse Ox O2 Delivery O2 Flow Rate FiO2 03/17/21 10:20 17 Room Air 03/17/21 09:50 2.0 03/17/21 09:50 96 130/87 03/17/21 07:00 97.8 99 97.8 General: Alert, No acute distress Lungs: Clear Cardiovascular: S1 Abdomen: Soft Neuro Exam: Alert Extremities: No Edema Labs Laboratory Tests Test 03/15/21 18:20 03/15/21 19:10 03/15/21 22:40 White Blood Count 8.5 x10^3/uL (4.0-11.0) Red Blood Count 4.55 x10^6/uL (4.30-5.70) Hemoglobin 13.4 g/dL (13.0-17.5) Hematocrit 37.3 % (39.0-53.0) Mean Corpuscular Volume 82 fL (79-100) Mean Corpuscular Hemoglobin 30 pg (25-35) Mean Corpuscular Hemoglobin Concent 36 g/dL (31-37) Red Cell Distribution Width 13.8 % (11.5-14.5) Platelet Count 327 x10^3/uL (140-400) Neutrophils (%) (Auto) 76 % (31-73) Lymphocytes (%) (Auto) 13 % (24-48) Monocytes (%) (Auto) 9 % (0-9) Eosinophils (%) (Auto) 1 % (0-3) Basophils (%) (Auto) 1 % (0-3) Neutrophils # (Auto) 6.5 x10^3/uL (1.8-7.7) Lymphocytes # (Auto) 1.1 x10^3/uL (1.0-4.8) Monocytes # (Auto) 0.8 x10^3/uL (0.0-1.1) Eosinophils # (Auto) 0.1 x10^3/uL (0.0-0.7) Basophils # (Auto) 0.1 x10^3/uL (0.0-0.2) Sodium Level 138 mmol/L (136-145) Potassium Level 3.7 mmol/L (3.5-5.1) Chloride Level 102 mmol/L (98-107) Carbon Dioxide Level 31 mmol/L (21-32) Anion Gap 5 (6-14) Blood Urea Nitrogen 14 mg/dL (8-26) Creatinine 1.2 mg/dL (0.7-1.3) Estimated GFR (Cockcroft-Gault) 62.6 BUN/Creatinine Ratio 12 (6-20) Glucose Level 153 mg/dL (70-99) Calcium Level 9.0 mg/dL (8.5-10.1) Magnesium Level 2.0 mg/dL (1.8-2.4) Total Bilirubin 0.2 mg/dL (0.2-1.0) Aspartate Amino Transf (AST/SGOT) 18 U/L (15-37) Alanine Aminotransferase (ALT/SGPT) 24 U/L (16-63) Alkaline Phosphatase 111 U/L (46-116) Troponin I Quantitative < 0.017 ng/mL (0.000-0.055) DS-Ubz-G-Type Natriuretic Peptide 490 pg/mL (0-124) Total Protein 7.4 g/dL (6.4-8.2) Albumin 3.3 g/dL (3.4-5.0) Albumin/Globulin Ratio 0.8 (1.0-1.7) SARS-CoV-2 RNA (TERRENCE) Negative (Negative) SARS-CoV-2 Antigen (Rapid) Negative (NEGATIVE) Lactic Acid Level 2.1 mmol/L (0.4-2.0) 1.9 mmol/L (0.4-2.0) Medications Active Scripts Medications Dose Route/Sig Max Daily Dose Days Date Category Prednisone 20 Mg Tablet 2 Tab PO DAILY 5 03/17/21 Rx Impression . 1. Acute exacerbation of chronic obstructive pulmonary disease. 2. Tobacco dependent. 3. Chronic obstructive pulmonary disease, unknown FEV1. 4. Chest x-ray revealing emphysema. Plan . RECOMMENDATIONS: 1. Continue steroids.taper 2. Empiric antibiotics. 3. Nebulized treatments. 4. discharge today SALUD BARNHART MD Mar 17, 2021 10:42
[2021-03-17 11:00] VITALS: BP 133/64
--- NOTE | 2021-03-17 14:20 | NUR ---
Pt discharged home with daughter. Discharge instructions reviewed with pt and he verbalized understanding.
== END 2021-03-17 14:20 | disposition home or self-care (01) | DRG 871 ==
LOC: ER 17:52 → 5 SOUTH 20:42
PROVIDERS: ADMIT Internal Medicine; ATTEND Internal Medicine
DX: A41.9 Sepsis, unspecified organism (principal); J96.02 Acute respiratory failure with hypercapnia; E46 Unspecified protein-calorie malnutrition; Z68.1 Body mass index [BMI] 19.9 or less, adult; J43.9 Emphysema, unspecified; F17.210 Nicotine dependence, cigarettes, uncomplicated; I10 Essential (primary) hypertension; J20.9 Acute bronchitis, unspecified; Z20.822 Contact with and (suspected) exposure to COVID-19
CPT/HCPCS: 36415; 71045; 73502; 73562; 80053; 83605; 83735; 83880; 84484; 85025; 87040; 87426; 93005; 94640; 96374; J0456; J0696; J1650; J2930; J7512; U0003; U0005; 99285-25; G0378; J7626